=== PATIENT | male | born 1945 | race Caucasian/White ===

== ENCOUNTER 2024-11-14 06:05 | Day surgery (SDC) | payer MEDICARE, BC, SELFPAY ==
[2024-11-14 06:30] VITALS: BMI 29.7
[2024-11-14] MEDS: LACTATED RINGERS 500 ML 500 ML 100 ML IV (06:35)
[2024-11-14 06:56] VITALS: BP 108/72; PULSE 59; RESP 16; TEMP 36.6; O2SAT 94
[2024-11-14] MEDS: SODIUM CHLORIDE 0.9 % (FLUSH) 10 ML SYRINGE IVF (07:01)
[2024-11-14] MEDS: LIDOCAINE 1% MDV 20 ML INJECTION (07:45)
[2024-11-14] MEDS: BUPIVACAINE 0.25% 30 ML INJECTION (07:45)
[2024-11-14] MEDS: CEFAZOLIN 1 GM inj IVP (07:46)
[2024-11-14 08:20] VITALS: BP 89/64; PULSE 60; RESP 16; TEMP 36.3; O2SAT 93
--- NOTE | 2024-11-14 08:22 | P.GSOP_ITS ---
Operative Note Date of procedure: 11/14/24 Pre-op diagnosis: 1. Right mid back lipoma 2. Back skin tags, x2 Post-op diagnosis: Same Type of Procedure: 1. Excision of back lipoma 2. Excision of skin tags, x2 Indications: Patient is a 78-year-old male who presented to clinic with a symptomatic back lipoma and multiple skin tags. Different treatment options were reviewed, please see consultation note for full discussion. Risks and benefits of operative intervention were discussed at length with the patient. Risks included but was not limited to: Bleeding, infection, risk of damage to surrounding structures, possible need for additional procedures and postoperative complications such as pneumonia, pulmonary emboli or TN. All ques tions and concerns were addressed with the patient agreeing to proceed. Procedure Description: After discussing the risks and benefits of the procedure, the patient signed informed consent.? The operative site was marked and the patient was brought to the operating room and placed on the operating table in lateral position with a beanbag.? Care was taken to pad the patient's pressure points.?? The patient was then given sedation by anesthesia.?? The operative site was then prepped and draped in the usual sterile fashion.? A time-out was then performed. Attention was 1st directed to the right mid back lipoma. A mixture of 1% lidocaine and Marcaine was used to anesthetize the surgical field. A transverse incision was made over the mass. Dissection was carried down through subcutaneous tissues. A firm fatty mass was encountered. This was welling capsulated and adherent on the posterior aspect to the underlying muscle. The mass was dissected out circumferentially and removed in 1 piece. It measured 6 cm by 5.5 cm x 2 cm in size. The specimen was then passed off to be sent to pathology. Hemostasis was assured with electrocautery. Additional anesthetic was placed within the incision. The wound was then closed in layers of interrupted 3 0 Vicryl and running 4-0 Monocryl stitch. Steri-Strips were applied. Two 5 mm pedunculated skin tags were seen on the right back. Local anesthetic was applied to each area. Using an iris scissors each skin tag was removed at the base. Cautery was used for hemostasis. A Steri-Strip was applied at each site. The patient was then woken and transported to the recovery area in stable condition. ? The patient tolerated the procedure well. Findings: Back lipoma, removal of skin tags x2 Anesthesia: MAC and local Surgeon: Kimberly Arana MD Estimated blood loss (mL): 5 Additional Specimen Information: 1. Back lipoma Condition: stable Disposition: PACU
--- NOTE | 2024-11-14 08:24 | P.ANES_ITS ---
Anesthesia Charges Start Date/Time Anesthesia Start Date: 11/14/24 Anesthesia Start Time: 07:28 Stop Date/Time Anesthesia Stop Date: 11/14/24 Anesthesia Stop Time: 08:24 Summary Extremes of Age - Over 70 or under 1: GUNITE MIXER Coding CPT Codes CPT Codes: ANESTH HEAD/NECK/PTRUNK - 37614 ([id number]) P4 - PT W/SEV SYS DIS THREAT LIFE, QX - GUNITE MIXER SVC W/ MD MED DIRECTION, QK - KLYSTROM TUBE TESTER 2-4 CNCRNT ANES PROC Additional Codes: Summary - Extremes of Age - Over 70 or under 1: GUNITE MIXER ([id number])
--- NOTE | 2024-11-14 08:24 | W.ANESCHARGE ---
Anesthesia Charges Start Date/Time Anesthesia Start Date: 11/14/24 Anesthesia Start Time: 07:28 Stop Date/Time Anesthesia Stop Date: 11/14/24 Anesthesia Stop Time: 08:24 Summary Extremes of Age - Over 70 or under 1: SHINGLE BOLT CUTTER Coding CPT Codes CPT Codes: ANESTH HEAD/NECK/PTRUNK - 44915 ([id number]) P4 - PT W/SEV SYS DIS THREAT LIFE, QX - SHINGLE BOLT CUTTER SVC W/ MD MED DIRECTION, QK - SAND CLEANING MACHINE OPERATOR 2-4 CNCRNT ANES PROC Additional Codes: Summary - Extremes of Age - Over 70 or under 1: SHINGLE BOLT CUTTER ([id number])
--- NOTE | 2024-11-14 08:26 | W.PM.H&PU ---
History & Physical Update History & Physical Update H&P Reviewed and patient assessed: No changes noted
[2024-11-14 08:30] VITALS: BP 93/62; PULSE 55; RESP 16; O2SAT 93
[2024-11-14 08:46] VITALS: BP 99/63; PULSE 60; RESP 16; O2SAT 91
[2024-11-14] MEDS: ACETAMINOPHEN 325 MG TABLET 650 MG PO (08:51)
[2024-11-14 09:00] VITALS: BP 100/72; PULSE 62; RESP 16; O2SAT 93
--- NOTE | 2024-11-14 09:25 | P.ANES_ITS ---
Anesthesia Charges Start Date/Time Anesthesia Start Date: 11/14/24 Anesthesia Start Time: 07:28 Stop Date/Time Anesthesia Stop Date: 11/14/24 Anesthesia Stop Time: 08:24 Summary Extremes of Age - Over 70 or under 1: MDA Coding CPT Codes CPT Codes: ANESTH HEAD/NECK/PTRUNK - 59137 ([id number]) QK - YARN SIZER 2-4 CNCRNT ANES PROC, QX - CRM CAMPAIGN MANAGER SVC W/ MD MED DIRECTION, P4 - PT W/SEV SYS DIS THREAT LIFE Additional Codes: Summary - Extremes of Age - Over 70 or under 1: MDA ([id number])
== END 2024-11-14 09:27 | disposition home or self-care (01) ==
LOC: OR 06:09
PROVIDERS: PCP Internal Medicine; Visit Provider Surgery
PROC: (CPT 21931; principal; 2024-11-14 07:30)
DX: D17.1 Benign lipomatous neoplasm of skin and subcutaneous tissue of trunk (principal); L91.8 Other hypertrophic disorders of the skin
CPT/HCPCS: 21931; 11200; 00300; 88304; 99100; J2003; A9270; J0665; J0690; J1100; J2371; J2405; J2704; J3010; J7120